=== PATIENT | male | born 1980 | race Caucasian/White ===

== ENCOUNTER 2017-03-20 00:52 | Emergency (ER) | payer BC ==
[~2017-03-20] VITALS: Ht 170.2 cm; Wt 75.6 kg
[~2017-03-20 00:52] MED LIST: FLEXERIL PO; NAPROSYN500 MG PO; TORADOL PO
[2017-03-20] MEDS ORDERED: BACLOFEN10 MG PO (01:06)
[2017-03-20] MEDS ORDERED: ORPHENADRINE100 MG PO (03:15)
[2017-03-20] MEDS ORDERED: ULTRAM50 M1 PO (03:15)
[2017-03-20 03:20] VITALS: BP 138/71
== END 2017-03-20 03:40 | disposition home or self-care (01) | DRG 313 ==
LOC: ED 00:52
DX: R07.89 Other chest pain (principal); G89.29 Other chronic pain

== ENCOUNTER 2018-02-28 07:32 | Emergency (ER) | payer BC ==
[~2018-02-28] VITALS: Ht 170.2 cm; Wt 70.0 kg
[~2018-02-28 07:32] MED LIST changes: +BACLOFEN10 MG PO; +ORPHENADRINE100 MG PO; +ULTRAM50 M1 PO
[2018-02-28 07:38] VITALS: BP 128/77
[2018-02-28] MEDS ORDERED: LORTAB 5/3255 MG PO (07:40)
== END 2018-02-28 08:29 | disposition home or self-care (01) | DRG 159 ==
LOC: ED 07:32
DX: K08.89 Other specified disorders of teeth and supporting structures (principal); K08.409 Partial loss of teeth, unspecified cause, unspecified class

== ENCOUNTER 2018-06-07 15:25 | Emergency (ER) | payer BC ==
[~2018-06-07] VITALS: Ht 170.2 cm; Wt 78.0 kg
[~2018-06-07 15:25] MED LIST changes: +LORTAB 5/3255 MG PO
[2018-06-07] MEDS ORDERED: BUDEPRION150 MG PO (16:37)
[2018-06-07] MEDS ORDERED: DIAZEPAM2 MG PO (16:38)
[2018-06-07] MEDS ORDERED: ULTRAM50 M1 PO (16:59)
[2018-06-07] MEDS ORDERED: TORADOL PO (16:59)
[2018-06-07] MEDS ORDERED: FLEXERIL PO (17:00)
[2018-06-07 17:33] VITALS: BP 131/83
== END 2018-06-07 17:33 | disposition home or self-care (01) | DRG 605 ==
LOC: ED 15:25
DX: S20.212A Contusion of left front wall of thorax, initial encounter (principal); W22.09XA Striking against other stationary object, initial encounter; Y93.89 Activity, other specified; Y92.009 Unspecified place in unspecified non-institutional (private) residence as the place of occurrence of the external cause

== ENCOUNTER 2018-08-13 22:26 | Emergency (ER) | payer BC ==
[~2018-08-13] VITALS: Ht 170.2 cm; Wt 72.7 kg
[~2018-08-13 22:26] MED LIST changes: +BUDEPRION150 MG PO; +DIAZEPAM2 MG PO
[2018-08-13 23:45] LABS: HEMATOCRIT 42.3 % (39.0-50.0); HEMOGLOBIN 15.1 g/dl (14.0-18.0); IMMATURE GRANULOCYTES 0.2 % (0.0-5.0); MEAN CORPUSCULAR HGB 32.5 pG CALC (26.0-32.0); MEAN CORPUSCULAR HGB CONC 35.7 g/L CALC (32.0-36.0); NEUT# 2.41 thou/uL (1.82-7.42); RED BLOOD COUNT 4.65 mill/uL (4.70-6.10); RED CELL DISTRI WIDTH 12.9 % (11.5-15.5)
[2018-08-13 23:58] LABS: ALBUMIN 4.5 g/dL (3.2-5.0); ALKALINE PHOSPHATASE 94 u/l (38-126); ANION GAP 12 (6-22 (CALC)); BILIRUBIN, TOTAL 1.9 mg/dL (0.0-1.4); BUN 17 mg/dL (9-20); BUN/CREATININE RATIO 14 (12-20 (CALC)); CARBON DIOXIDE 25 mmol/l (22-30); CHLORIDE 105 mmol/l (95-108); CREATININE 1.1 mg/dL (0.7-1.3); GFR > 60 ML/MIN (>=60 (CALC)); GFR FOR AFR.AMER. > 60 ML/MIN (>=60 (CALC)); POTASSIUM 4.3 mmol/l (3.5-5.1); SGOT/AST 31 u/l (17-59); SODIUM 138 mmol/l (137-146); TOTAL PROTEIN 7.2 g/dL (6.3-8.2)
[2018-08-14] MEDS ORDERED: SILVADENE1 % EX (00:10)
[2018-08-14] MEDS ORDERED: AMOXICILLIN500 MG PO (00:10)
[2018-08-14 00:39] VITALS: BP 140/93
== END 2018-08-14 00:39 | disposition home or self-care (01) | DRG 607 ==
LOC: ED 22:26
PROVIDERS: Emergency Medicine
DX: L55.9 Sunburn, unspecified (principal); I10 Essential (primary) hypertension

== ENCOUNTER 2019-11-19 16:38 | Emergency (ER) | payer BC ==
[~2019-11-19] VITALS: Ht 170.2 cm; Wt 75.0 kg
[~2019-11-19 16:38] MED LIST changes: +AMOXICILLIN500 MG PO; +SILVADENE1 % EX
[2019-11-19] MEDS ORDERED: NAPROXEN500 MG PO (17:32)
[2019-11-19 18:08] VITALS: BP 138/73
== END 2019-11-19 18:08 | disposition home or self-care (01) | DRG 605 ==
LOC: ED 16:38
DX: S20.212A Contusion of left front wall of thorax, initial encounter (principal); I10 Essential (primary) hypertension; W50.0XXA Accidental hit or strike by another person, initial encounter; Y93.11 Activity, swimming; Y92.009 Unspecified place in unspecified non-institutional (private) residence as the place of occurrence of the external cause

== ENCOUNTER 2020-04-27 09:13 | Emergency (ER) | payer BC ==
[~2020-04-27] VITALS: Ht 170.2 cm; Wt 70.0 kg
[~2020-04-27 09:13] MED LIST changes: +NAPROXEN500 MG PO
[2020-04-27] MEDS ORDERED: KEFLEX500 MG PO (10:04)
[2020-04-27 10:10] VITALS: BP 126/70
== END 2020-04-27 10:10 | disposition home or self-care (01) | DRG 603 ==
LOC: ED 09:13
DX: L03.114 Cellulitis of left upper limb (principal); L84 Corns and callosities; I10 Essential (primary) hypertension; F41.9 Anxiety disorder, unspecified; F17.200 Nicotine dependence, unspecified, uncomplicated

== ENCOUNTER 2020-06-28 12:20 | Emergency (ER) | payer BC ==
[~2020-06-28] VITALS: Ht 170.2 cm; Wt 75.0 kg
[~2020-06-28 12:20] MED LIST changes: +KEFLEX500 MG PO
[2020-06-28 13:00] LABS: HEMATOCRIT 44.8 % (39.0-50.0); HEMOGLOBIN 15.6 g/dl (14.0-18.0); IMMATURE GRANULOCYTES 0.3 % (0.0-5.0); MEAN CELL VOLUME 93.1 fL CALC (80.0-100.0); MEAN CORPUSCULAR HGB 32.4 pG CALC (26.0-32.0); MEAN CORPUSCULAR HGB CONC 34.8 g/dL CAL (32.0-36.0); NEUT# 4.71 thou/uL (1.82-7.42); RED BLOOD COUNT 4.81 mill/uL (4.70-6.10); RED CELL DISTRI WIDTH 12.6 % (11.5-15.5)
[2020-06-28 13:18] LABS: ALBUMIN 4.8 g/dL (3.2-5.0); ALKALINE PHOSPHATASE 82 u/l (38-126); ANION GAP 12 (6-22 (CALC)); BUN 12 mg/dL (9-20); BUN/CREATININE RATIO 12 (12-20 (CALC)); CARBON DIOXIDE 25 mmol/l (22-30); CHLORIDE 105 mmol/l (95-108); CREATININE 1.1 mg/dL (0.7-1.3); GFR > 60 ML/MIN (>=60 (CALC)); GFR FOR AFR.AMER. > 60 ML/MIN (>=60 (CALC)); POTASSIUM 3.7 mmol/l (3.5-5.1); SGOT/AST 27 u/l (17-59); SODIUM 138 mmol/l (137-146); TOTAL PROTEIN 7.9 g/dL (6.3-8.2)
[2020-06-28 13:19] LABS: BILIRUBIN, TOTAL 1.1 mg/dL (0.0-1.4)
[2020-06-28 13:48] LABS: TSH, 3RD GENERATION 0.88 uIU/mL (0.47 - 4.68)
[2020-06-28 14:15] VITALS: BP 146/92
== END 2020-06-28 14:17 | disposition home or self-care (01) | DRG 866 ==
LOC: ED 12:20
DX: B34.9 Viral infection, unspecified (principal); J02.8 Acute pharyngitis due to other specified organisms; I10 Essential (primary) hypertension; F41.9 Anxiety disorder, unspecified; Z20.822 Contact with and (suspected) exposure to COVID-19

== ENCOUNTER 2021-03-30 21:46 | Emergency (ER) | payer BC ==
[~2021-03-30] VITALS: Ht 170.2 cm; Wt 75.0 kg
[2021-03-30 21:55] VITALS: BP 131/89
== END 2021-03-30 22:40 | disposition left against medical advice (07) | DRG 951 ==
LOC: ED 21:46 → LWOBS 22:40
DX: Z53.21 Procedure and treatment not carried out due to patient leaving prior to being seen by health care provider (principal)

== ENCOUNTER 2021-06-03 22:27 | Emergency (ER) | payer BC ==
[~2021-06-03] VITALS: Ht 170.2 cm; Wt 77.0 kg
[2021-06-03 22:38] VITALS: BP 132/87
[2021-06-03] MEDS ORDERED: [UNRECOGNIZED DRUG - OTHER] (22:54)
[2021-06-03 23:00] VITALS: BP 125/80
[2021-06-03 23:16] LABS: HEMATOCRIT 43.9 % (39.0-50.0); HEMOGLOBIN 15.5 g/dl (14.0-18.0); IMMATURE GRANULOCYTES 0.1 % (0.0-5.0); MEAN CELL VOLUME 95.4 fL CALC (80.0-100.0); MEAN CORPUSCULAR HGB 33.7 pG CALC (26.0-32.0); MEAN CORPUSCULAR HGB CONC 35.3 g/dL CAL (32.0-36.0); NEUT# 5.87 thou/uL (1.82-7.42); RED BLOOD COUNT 4.6 mill/uL (4.70-6.10); RED CELL DISTRI WIDTH 12.9 % (11.5-15.5)
[2021-06-03 23:30] VITALS: BP 132/81
[2021-06-03 23:32] LABS: ALBUMIN 4.5 g/dL (3.2-5.0); ALKALINE PHOSPHATASE 85 u/l (38-126); ANION GAP 13 (6-22 (CALC)); BUN 15 mg/dL (9-20); BUN/CREATININE RATIO 13 (12-20 (CALC)); CARBON DIOXIDE 23 mmol/l (22-30); CHLORIDE 109 mmol/l (95-108); CPK 313 u/l (52-200); CREATININE 1.2 mg/dL (0.7-1.3); GFR > 60 ML/MIN (>=60 (CALC)); GFR FOR AFR.AMER. > 60 ML/MIN (>=60 (CALC)); MAGNESIUM 2.1 mg/dL (1.6-2.3); POTASSIUM 3.9 mmol/l (3.5-5.1); SGOT/AST 34 u/l (17-59); SODIUM 142 mmol/l (137-146); TOTAL PROTEIN 7.4 g/dL (6.3-8.2)
[2021-06-03 23:40] LABS: MYOGLOBIN 59 ng/mL (0 - 121)
[2021-06-04] VITALS: BP 123/81
[2021-06-04 00:15] VITALS: BP 123/81
== END 2021-06-04 00:15 | disposition home or self-care (01) | DRG 556 ==
LOC: ED 22:27
PROVIDERS: Family Medicine
DX: M79.18 Myalgia, other site (principal); M25.59 Pain in other specified joint; I10 Essential (primary) hypertension; F41.9 Anxiety disorder, unspecified

== ENCOUNTER 2022-01-25 16:41 | Emergency (ER) | payer BC ==
[~2022-01-25] VITALS: Ht 170.2 cm; Wt 72.7 kg
[~2022-01-25 16:41] MED LIST changes: +[UNRECOGNIZED DRUG - OTHER]
[2022-01-25] MEDS ORDERED: NEURONTIN100 MG PO (17:49)
[2022-01-25] MEDS ORDERED: MEDDOSEPAK PO (17:49)
[2022-01-25 18:15] VITALS: BP 135/91
== END 2022-01-25 18:15 | disposition home or self-care (01) | DRG 607 ==
LOC: ED 16:41
DX: L25.8 Unspecified contact dermatitis due to other agents (principal)

== ENCOUNTER 2022-01-28 00:54 | Emergency (ER) | payer BC ==
[~2022-01-28] VITALS: Ht 170.2 cm; Wt 75.0 kg
[~2022-01-28 00:54] MED LIST changes: +MEDDOSEPAK PO; +NEURONTIN100 MG PO
[2022-01-28 01:37] LABS: HEMATOCRIT 43.8 % (39.0-50.0); HEMOGLOBIN 15.5 g/dl (14.0-18.0); IMMATURE GRANULOCYTES 0.1 % (0.0-5.0); MEAN CELL VOLUME 96.1 fL CALC (80.0-100.0); MEAN CORPUSCULAR HGB CONC 35.4 g/dL CAL (32.0-36.0); NEUT# 7.77 thou/uL (1.82-7.42); RED BLOOD COUNT 4.56 mill/uL (4.70-6.10); RED CELL DISTRI WIDTH 12.8 % (11.5-15.5)
[2022-01-28 01:54] LABS: ALBUMIN 4.5 g/dL (3.2-5.0); ALKALINE PHOSPHATASE 100 u/l (38-126); AMYLASE 83 u/l (30-110); ANION GAP 10 (6-22 (CALC)); BILIRUBIN, TOTAL 0.9 mg/dL (0.0-1.4); BUN 16 mg/dL (9-20); BUN/CREATININE RATIO 12 (12-20 (CALC)); CARBON DIOXIDE 25 mmol/l (22-30); CHLORIDE 109 mmol/l (95-108); CREATININE 1.4 mg/dL (0.7-1.3); GFR FOR AFR.AMER. > 60 ML/MIN (>=60 (CALC)); GFR OTHER RACES 55 ML/MIN (>=60 (CALC)); LIPASE 109 u/l (23-300); POTASSIUM 3.8 mmol/l (3.5-5.1); SGOT/AST 29 u/l (17-59); SODIUM 140 mmol/l (137-146); TOTAL PROTEIN 7.4 g/dL (6.3-8.2)
[2022-01-28 02:07] LABS: MYOGLOBIN 19 ng/mL (0 - 121)
[2022-01-28 02:49] VITALS: BP 140/88
[2022-01-28 02:57] LABS: URINE BILIRUBIN - DIPSTICK NEGATIVE (NEGATIVE); URINE BLOOD DIPSTICK NEGATIVE (NEGATIVE); URINE COLOR YELLOW; URINE GLUCOSE - DIPSTICK NEGATIVE (NEGATIVE); URINE KETONE TRACE mg/dL (NEGATIVE); URINE LEUK ESTERASE NEGATIVE (NEGATIVE); URINE PROTEIN - DIPSTICK NEGATIVE (NEG-TRACE)
[2022-01-28 03:01] LABS: URINE NITRITE - DIPSTICK NEGATIVE (Negative)
[2022-01-28] MEDS ORDERED: ONDANSETRON4 MG PO (03:09)
== END 2022-01-28 03:28 | disposition home or self-care (01) | DRG 880 ==
LOC: ED 00:54
PROVIDERS: Emergency Medicine
DX: F41.8 Other specified anxiety disorders (principal)

== ENCOUNTER 2022-06-23 12:02 | Emergency (ER) | payer BC ==
[~2022-06-23] VITALS: Ht 170.2 cm; Wt 74.8 kg
[~2022-06-23 12:02] MED LIST changes: +ONDANSETRON4 MG PO
[2022-06-23] MEDS ORDERED: HYDROXYZ HCL25 MG PO (12:55)
[2022-06-23] MEDS ORDERED: DICLOFENAC SODIUM1 % TD (12:55)
[2022-06-23 13:09] VITALS: BP 136/96
== END 2022-06-23 13:19 | disposition home or self-care (01) | DRG 607 ==
LOC: ED 12:02
DX: L55.0 Sunburn of first degree (principal)

== ENCOUNTER 2024-05-30 14:10 | Emergency (ER) | payer BC ==
[2024-05-30] VITALS (13 sets, daily range): BP systolic 97–147; BP diastolic 57–89
[~2024-05-30] VITALS: Ht 170.2 cm; Wt 81.6 kg
[~2024-05-30 14:10] MED LIST changes: +DICLOFENAC SODIUM1 % TD; +EZETIMIBE10 MG PO; +HYDROXYZ HCL25 MG PO; +SERTRALINE50 MG PO
[2024-05-30] MEDS ORDERED: HYDROcodone 7.5 MG/Acetaminophen 325 MG/COMBO PO ONE (14:25)
[2024-05-30] MEDS ORDERED: ORPHENADRINE CITRATE 30 MG/ML AMP IM ONE (14:25)
[2024-05-30] MEDS ORDERED: KETOROLAC TROMETHAMINE 30 MG/ML SDV IM ONE (14:25)
[2024-05-30] MEDS ORDERED: METHOCARBAMOL500 MG PO (16:40)
[2024-05-30] MEDS ORDERED: NAPROXEN500 MG PO (16:40)
[2024-05-30] MEDS ORDERED: TRAMADOL HYDROC50 M1 PO (16:40)
== END 2024-05-30 17:10 | disposition home or self-care (01) | DRG 552 ==
LOC: ED 14:10
DX: M54.50 Low back pain, unspecified (principal); M54.6 Pain in thoracic spine; I10 Essential (primary) hypertension; E78.5 Hyperlipidemia, unspecified; F41.9 Anxiety disorder, unspecified
CPT/HCPCS: J2360